=== PATIENT | male | born 1975 | race Caucasian/White ===

== ENCOUNTER 2023-01-11 12:13 | Emergency (ER) | payer OTHER ==
[2023-01-11 12:34] VITALS: BP 135/95; PULSE 80; RESP 18; TEMP 97.6; BMI 26.5
[2023-01-11] MEDS ORDERED: LIDOCAINE 5% TOPICAL PATCH TP ONE (13:02)
[2023-01-11] MEDS ORDERED: KETOROLAC TROMETHAMINE 30 MG/1 ML VIAL IM ONE (13:02)
[2023-01-11] MEDS ORDERED: KETOROLAC TROMETHAMINE 30 MG/1 ML VIAL ONE (13:06)
[2023-01-11] MEDS ORDERED: LIDOCAINE 4% PATCH TP ONE (13:06)
[2023-01-11] MEDS ORDERED: LIDOCAINE PATCH REMOVAL MC SCH (22:00)
== END 2023-01-11 13:58 | disposition home or self-care (01) ==
LOC: JERFT 12:13
PROC: 3E0233Z Introduction of Anti-inflammatory into Muscle, Percutaneous Approach (ICD-10-PCS; principal; 2023-01-11)
DX: M54.50 Low back pain, unspecified (principal); X50.0XXA Overexertion from strenuous movement or load, initial encounter; Y93.F2 Activity, caregiving, lifting; Y99.0 Civilian activity done for income or pay
CPT/HCPCS: 99284-25